=== PATIENT | male | born 1975 | race Caucasian/White ===

== ENCOUNTER 2017-05-15 03:04 | Emergency (ER) | payer OTHER ==
[2017-05-15 03:10] VITALS: TEMP 98.2; O2SAT 96
[2017-05-15] MEDS ORDERED: chlordiazePOXIDE 25 MG CAP PO ONE (05:04)
[2017-05-15] MEDS ORDERED: CHLORDIAZEPOXIDE 25MG PREPK#6 BTL TAKEHOME ONE (05:04)
--- NOTE | 2017-05-15 05:06 | EDPHY ---
H & P Stated Complaint: sent from [facility]; Hx of EtOH w/d Sz Time Seen by Provider: 05/15/17 05:02 HPI/ROS: HPI The patient presents with concern for alcohol withdrawal. His last drink was 8: 00 p.m. tonight and he has been drinking continuously for the last 3 days. He feels shaky and anxious. [facility] and was sent to the emergency room for medication. He has not had any seizure, though does have a history of alcohol withdrawal seizures. He has had symptoms of alcohol withdrawal before and these feels similar. He denies any injuries. He is able to drink fluids and has not had any vomiting. REVIEW OF SYSTEMS Constitutional: No fever, no chills. Eyes: No discharge. ENT: No sore throat. Cardiovascular: No chest pain, no palpitations. Respiratory: No cough, no shortness of breath. Gastrointestinal: No abdominal pain, no vomiting. Genitourinary: No hematuria. Musculoskeletal: No back pain. Skin: No rashes. Neurological: No headache. PMHx: Alcoholic neuropathy Soc Hx: Alcohol abuse, homeless, has been camping in [place] PHYSICAL General Appearance: Alert, disheveled with poor hygiene Eyes: Pupils equal and round no pallor or injection ENT, Mouth: Mucous membranes moist Respiratory: There are no retractions, lungs are clear to auscultation Cardiovascular: Regular rate and rhythm Gastrointestinal: Abdomen is soft and non-tender, no masses, bowel sounds normal Neurological: A&O, moves all extremities, mild hand tremor Skin: Warm and dry, no rashes Musculoskeletal: Neck is supple non tender Extremities: symmetrical, full range of motion Psychiatric: Patient is oriented X 3, there is no agitation t Source: Patient Exam Limitations: No limitations - Personal History Current Tetanus/Diphtheria Vaccine: Yes - Medical/Surgical History Hx Asthma: No Hx Chronic Respiratory Disease: No Hx Diabetes: No Hx Cardiac Disease: No Hx Renal Disease: No Hx Cirrhosis: No Hx Alcoholism: Yes Hx HIV/AIDS: No Hx Splenectomy or Spleen Trauma: No Other PMH: PSHx: skin graft R arm. PMHx: R clavicle fx, EtOH abuse/withdrawal seizures, peripheral neuropathy - Social History Smoking Status: Former smoker Constitutional: Initial Vital Signs Temperature (C) 36.8 C 05/15/17 03:06 Heart Rate 89 05/15/17 03:06 Respiratory Rate 16 05/15/17 03:06 Blood Pressure 133/91 H 05/15/17 03:06 O2 Sat (%) 96 05/15/17 03:06 O2 Delivery Mode Room Air Allergies/Adverse Reactions: No Known Allergies Allergy (Unverified 05/15/17 03:06) Home Medications: Medication Instructions Recorded GABAPENTIN 05/15/17 Gabapentin 200 mg PO TID #30 tablet 05/15/17 Medical Decision Making Differential Diagnosis: This is a 42-year-old male who presents from the [facility] with symptoms of alcohol withdrawal. He is feeling tremulous and feels anxious. On exam, he is not tachycardic. He does not have a hand tremor. I feel he is in mild withdrawal currently. I will treat him here with a dose of Librium and give him a pill pack to go with. He is requesting gabapentin which she has a prescription for usually for alcohol will induced neuropathy. He will be sent back to the [facility] via cab. Differential diagnosis includes alcohol withdrawal, anxiety, alcohol intoxication. - Data Points Medications Given: Discontinued Medications Chlordiazepoxide (Librium 25 Mg Prepack#6) 1 btl TAKEHOME EDNOW ONE Stop: 05/15/17 05:05 Last Admin: 05/15/17 05:15 Dose: 1 btl Chlordiazepoxide HCl (Librium) 50 mg PO EDNOW ONE Stop: 05/15/17 05:05 Last Admin: 05/15/17 05:14 Dose: 50 mg Departure - Departure Disposition: Home, Routine, Self-Care Clinical Impression: Alcohol withdrawal Qualifiers: Complication of substance-induced condition: uncomplicated Qualified Code(s): F10.230 - Alcohol dependence with withdrawal, uncomplicated Condition: Good Instructions: Alcohol Withdrawal (ED) Referrals: [facility] [Outside] - As per Instructions Prescriptions: Gabapentin 200 mg PO TID #30 tablet
[2017-05-15 05:36] VITALS: BP 121/101; PULSE 105; RESP 18
== END 2017-05-15 05:34 | disposition home or self-care (01) ==
DX: F10.230 Alcohol dependence with withdrawal, uncomplicated (principal); Z87.891 Personal history of nicotine dependence